=== PATIENT | female | born 1950 | race Caucasian/White ===

== ENCOUNTER → 2016-07-15 | Outpatient (CLI) | payer BC ==
--- NOTE | 2016-07-18 06:51 | MM ---
Reason for exam: screening (asymptomatic). Last mammogram was performed 1 year ago. History: Patient is postmenopausal and has history of other cancer at age 51. Took estrogen for 8 years. Physical Findings: A clinical breast exam by your physician is recommended on an annual basis and results should be correlated with mammographic findings. MG Screening Mammo w CAD Bilateral CC and MLO view(s) were taken. Prior study comparison: July 14, 2015, bilateral MG screening mammo w CAD. July 08, 2014, bilateral MG screening mammo w CAD. The breast tissue is heterogeneously dense. This may lower the sensitivity of mammography. There is chronic nodularity in the right breast. There is no discrete abnormality. ASSESSMENT: Negative, BI-RAD 1 RECOMMENDATION: Routine screening mammogram of both breasts in 1 year.
== END | disposition home or self-care (01) ==
LOC: RADMAMWWP 09:43
PROVIDERS: ATTEND Family Medicine
DX: Z12.31 Encounter for screening mammogram for malignant neoplasm of breast (principal)

== ENCOUNTER → 2017-07-25 | Outpatient (CLI) | payer BC ==
--- NOTE | 2017-07-26 09:34 | MM ---
Reason for exam: screening (asymptomatic). Last mammogram was performed 1 year ago. History: Patient is postmenopausal and has history of other cancer at age 51. Took estrogen for 8 years. Physical Findings: A clinical breast exam by your physician is recommended on an annual basis and results should be correlated with mammographic findings. MG Screening Mammo w CAD Bilateral CC and MLO view(s) were taken. Prior study comparison: July 15, 2016, bilateral MG screening mammo w CAD. July 14, 2015, bilateral MG screening mammo w CAD. The breast tissue is heterogeneously dense. This may lower the sensitivity of mammography. No significant changes when compared with prior studies. ASSESSMENT: Benign, BI-RAD 2 RECOMMENDATION: Routine screening mammogram of both breasts in 1 year.
== END | disposition home or self-care (01) ==
LOC: RADMAMWWP 11:08
PROVIDERS: ATTEND Family Medicine
DX: Z12.31 Encounter for screening mammogram for malignant neoplasm of breast (principal)
CPT/HCPCS: 77067

== ENCOUNTER → 2018-03-21 | Outpatient (CLI) | payer BC ==
--- NOTE | 2018-03-21 11:58 | XR ---
EXAMINATION TYPE: XR chest 2V DATE OF EXAM: 03/21/2018 COMPARISON: Prior chest x-ray 04/06/2017 HISTORY: Checkup, Z 87.891, Z00.00 TECHNIQUE: Frontal and lateral views of the chest are obtained. FINDINGS: There is no focal air space opacity, pleural effusion, or pneumothorax seen. The cardiac silhouette size is within normal limits. The osseous structures are intact. Patient may be rotated as on prior, there may be slight spinal curvature. IMPRESSION: No acute cardiopulmonary process.
== END ==
LOC: RADXRMAIN 11:17
PROVIDERS: ATTEND Family Medicine
DX: Z00.00 Encounter for general adult medical examination without abnormal findings (principal); Z87.891 Personal history of nicotine dependence
CPT/HCPCS: 71046

== ENCOUNTER → 2018-07-27 | Outpatient (CLI) | payer BC ==
--- NOTE | 2018-07-31 08:41 | MM ---
Reason for exam: screening (asymptomatic). Last mammogram was performed 1 year ago. History: Patient is postmenopausal and has history of other cancer at age 51. Took estrogen for 8 years. Physical Findings: A clinical breast exam by your physician is recommended on an annual basis and results should be correlated with mammographic findings. MG Screening Mammo w CAD Bilateral CC and MLO view(s) were taken. Prior study comparison: July 25, 2017, bilateral MG screening mammo w CAD. July 15, 2016, bilateral MG screening mammo w CAD. No significant changes when compared with prior studies. ASSESSMENT: Benign, BI-RAD 2 RECOMMENDATION: Routine screening mammogram of both breasts in 1 year.
== END | disposition home or self-care (01) ==
LOC: RADMAMWWP 08:14
PROVIDERS: ATTEND Family Medicine
DX: Z12.31 Encounter for screening mammogram for malignant neoplasm of breast (principal)
CPT/HCPCS: 77067

== ENCOUNTER → 2019-03-25 | Outpatient (CLI) | payer BC ==
--- NOTE | 2019-03-25 13:07 | XR ---
EXAMINATION TYPE: XR chest 2V DATE OF EXAM: 03/25/2019 COMPARISON: 03/21/2018 INDICATION: Z00.00 TECHNIQUE: Frontal and lateral views of the chest are obtained. FINDINGS: The heart size is normal. The pulmonary vasculature is normal. The lungs are clear. Minimal scoliosis within the thoracic spine. This can be positional. IMPRESSION: 1. No acute pulmonary process.
== END | disposition home or self-care (01) ==
LOC: RADXRMAIN 12:39
PROVIDERS: ATTEND Family Medicine
DX: Z00.00 Encounter for general adult medical examination without abnormal findings (principal)
CPT/HCPCS: 71046

== ENCOUNTER → 2019-07-30 | Outpatient (CLI) | payer BC ==
--- NOTE | 2019-08-01 10:09 | MM ---
Reason for exam: screening (asymptomatic). Last mammogram was performed 1 year ago. History: Patient is postmenopausal and has history of other cancer at age 51. Took estrogen for 8 years. Physical Findings: A clinical breast exam by your physician is recommended on an annual basis and results should be correlated with mammographic findings. MG Screening Mammo w CAD Bilateral CC and MLO view(s) were taken. Prior study comparison: July 27, 2018, bilateral MG screening mammo w CAD. July 25, 2017, bilateral MG screening mammo w CAD. There are scattered fibroglandular densities. No significant changes when compared with prior studies. ASSESSMENT: Negative, BI-RAD 1 RECOMMENDATION: Routine screening mammogram of both breasts in 1 year.
== END | disposition home or self-care (01) ==
LOC: RADMAMWWP 08:38
PROVIDERS: ATTEND Family Medicine
DX: Z12.31 Encounter for screening mammogram for malignant neoplasm of breast (principal)
CPT/HCPCS: 77067

== ENCOUNTER → 2020-09-24 | Outpatient (CLI) | payer BC ==
--- NOTE | 2020-09-28 11:34 | MM ---
Reason for exam: screening (asymptomatic). Last mammogram was performed 1 year and 2 months ago. History: Patient is postmenopausal and has history of other cancer at age 51. Took estrogen for 8 years. Physical Findings: A clinical breast exam by your physician is recommended on an annual basis and results should be correlated with mammographic findings. MG Screening Mammo w CAD Bilateral CC and MLO view(s) were taken. Prior study comparison: July 30, 2019, bilateral MG screening mammo w CAD. July 27, 2018, bilateral MG screening mammo w CAD. July 25, 2017, bilateral MG screening mammo w CAD. July 15, 2016, bilateral MG screening mammo w CAD. There are scattered fibroglandular densities. No significant changes when compared with prior studies. ASSESSMENT: Benign, BI-RAD 2 RECOMMENDATION: Routine screening mammogram of both breasts in 1 year.
== END | disposition home or self-care (01) ==
LOC: RADMAMWWP 10:16
PROVIDERS: ATTEND Family Medicine
DX: Z12.31 Encounter for screening mammogram for malignant neoplasm of breast (principal); Z78.0 Asymptomatic menopausal state
CPT/HCPCS: 77067

== ENCOUNTER 2021-05-21 07:10 | Day surgery (SDC) | payer BC ==
[2021-05-19 09:07] VITALS: BMI 20.9
[~2021-05-21 07:10] MED LIST: LACTATED RINGERS 1,000 ML IV SCH
[2021-05-21 07:51] VITALS: RESP 16; TEMP 97.7
[2021-05-21] MEDS ORDERED: PROPOFOL 10 MG/ML 20 ML VIAL IV ONE (08:00)
--- NOTE | 2021-05-21 08:15 | P.HPIHPCON ---
History of Present Illness H&P Date: 05/21/21 70-year-old female presents for screening colonoscopy. Her last colonoscopy was approximately 15 years ago. She denies any blood in her stool. Denies any family history of colon cancer. Consent for Procedure: I have explained the operation/procedure to the patient, including the risks, benefits, side effects, alternative therapies (including not receiving the proposed treatment or service), the likelihood of the patient achieving his/her goals, and potential recuperation problems for the procedure/sedation/analgesia, as well as any blood products, if indicated. I also explained to the patient the risks, benefits and side effects of the alternatives, as well as the risks related to not receiving the proposed procedure, care, treatment, or services. - Review of Systems All systems: negative Past Medical History Past Medical History: No Reported History History of Any Multi-Drug Resistant Organisms: None Reported Past Surgical History: Hysterectomy Additional Past Surgical History / Comment(s): COLONOSCOPY Past Anesthesia/Blood Transfusion Reactions: No Reported Reaction Smoking Status: Former smoker - Past Family History Mother Family Medical History: Cancer Additional Family Medical History / Comment(s): OVARIAN Sister(s) Family Medical History: Cancer Additional Family Medical History / Comment(s): LUNG-SMOKER Medications and Allergies Home Medications Medication Instructions Recorded Confirmed Type No Known Home Medications 05/19/21 05/21/21 History Allergies Allergy/AdvReac Type Severity Reaction Status Date / Time No Known Allergies Allergy Verified 05/21/21 07:46 Surgical - Exam Osteopathic Statement: *. No significant issues noted on an osteopathic structural exam other than those noted in the History and Physical/Consult. Vital Signs Temp Pulse Resp BP Pulse Ox 97.7 F 70 16 147/72 99 05/21/21 07:50 05/21/21 07:50 05/21/21 07:50 05/21/21 07:50 05/21/21 07:50 - General well nourished, no distress - Neck trachea midline - Respiratory normal respiratory effort - Abdomen Abdomen: soft, non tender Assessment and Plan Plan: Plan is for a colonoscopy. Further recommendations to be made after procedure. Risks, benefits and alternatives were provided to the patient and she did provide consent.
--- NOTE | 2021-05-21 08:17 | P.PCN ---
Date of Procedure: 05/21/21 Preoperative Diagnosis: Screening for colon cancer Postoperative Diagnosis: Diverticulosis Procedure(s) Performed: Colonoscopy Anesthesia: MAC Surgeon: Fadia Lama Pathology: none sent Condition: stable Disposition: same day Indications for Procedure: 70-year-old female presents for screening colonoscopy. She denies blood in her stool. Her last colonoscopy was 15 years ago. Risks, benefits and alternatives were provided to the patient and she did provide consent. Operative Findings: Diverticulosis Description of Procedure: The patient was brought into the endoscopy suite and placed in left lateral decubitus position. Adequate sedation was achieved using conscious sedation. A digital rectal exam was performed and internal hemorrhoids were palpated. An endoscope was then placed in the rectum and advanced to the cecum as identified by landmarks including the appendiceal orifice and the ileocecal valve. The prep was good. The colonoscope was slowly withdrawn, examining for any mucosal antibiotics. The cecum, ascending, transverse, descending and sigmoid colon were visualized adequately. There were no large neoplastic lesions noted throughout the colon. There were no obvious polyps noted throughout the colon. Moderate amount of diverticulosis was noted in the descending and sigmoid colon. Retroflexion was performed in the rectum and internal hemorrhoids were visible. Excess air was removed from the colonoscope withdrawn and the procedure terminated. The patient was then transferred to the recovery unit in stable condition. Repeat colonoscopy should be performed in 8 years.
[2021-05-21 08:32] VITALS: BP 128/72; PULSE 56
== END 2021-05-21 09:18 | disposition home or self-care (01) ==
LOC: ORWHC2ENDO 07:10
PROVIDERS: ATTEND Surgery
DX: Z12.11 Encounter for screening for malignant neoplasm of colon (principal); K57.30 Diverticulosis of large intestine without perforation or abscess without bleeding; K64.8 Other hemorrhoids; Z90.710 Acquired absence of both cervix and uterus; Z87.891 Personal history of nicotine dependence; Z80.41 Family history of malignant neoplasm of ovary
CPT/HCPCS: J2704; G0121; 45378

== ENCOUNTER → 2021-10-12 | Outpatient (CLI) | payer BC ==
--- NOTE | 2021-10-15 09:17 | MM ---
Reason for exam: screening (asymptomatic). Last mammogram was performed 1 year and 1 month ago. History: Patient is postmenopausal and has history of other cancer at age 51. Took estrogen for 8 years. Physical Findings: A clinical breast exam by your physician is recommended on an annual basis and results should be correlated with mammographic findings. MG Screening Mammo w CAD Bilateral CC and MLO view(s) were taken. Prior study comparison: September 24, 2020, bilateral MG screening mammo w CAD. July 30, 2019, bilateral MG screening mammo w CAD. The breast tissue is heterogeneously dense. This may lower the sensitivity of mammography. No significant changes when compared with prior studies. ASSESSMENT: Benign, BI-RAD 2 RECOMMENDATION: Routine screening mammogram of both breasts in 1 year.
== END | disposition home or self-care (01) ==
LOC: RADMAMWWP 11:53
PROVIDERS: ATTEND Family Medicine
DX: Z12.31 Encounter for screening mammogram for malignant neoplasm of breast (principal)
CPT/HCPCS: 77067

== ENCOUNTER 2022-06-19 19:18 | Emergency (ER) | payer BC ==
[2022-06-19 19:30] VITALS: RESP 16; TEMP 98.4
[2022-06-19] MEDS ORDERED: TOPICAL SKIN ADHESIVE 1 EACH AMP TOPICAL ONE (20:44)
[2022-06-19] MEDS ORDERED: DIPH,PERTUS(ACELL)TETVAC-LF 0.5 ML VIAL IM ONE (20:44)
[2022-06-19 21:48] VITALS: PULSE 67
[2022-06-19 21:50] VITALS: BP 171/91
--- NOTE | 2022-06-19 21:56 | ED ---
General Adult HPI - General Chief complaint: Wound/Laceration Stated complaint: Head Lac Time Seen by Provider: 06/19/22 20:10 Source: patient, RN notes reviewed Mode of arrival: ambulatory Limitations: no limitations - History of Present Illness Initial comments: 71-year-old female presents to the emergency department for evaluation of a facial laceration to the right side of her face near the inner corner of her eye extending to her eyebrow. States she was assembling an exercise bike when she pulled hard and the metal piece struck her face. Minimal bleeding. Developing contusion around the injury. Denies any headache, dizziness, loss of consciousness, blurry vision, vision change, or any other injuries. Last tetanus shot 10 years ago. - Related Data Home Medications Medication Instructions Recorded Confirmed No Known Home Medications 05/19/21 06/19/22 Allergies Allergy/AdvReac Type Severity Reaction Status Date / Time No Known Allergies Allergy Verified 06/19/22 20:45 Review of Systems ROS Statement: Those systems with pertinent positive or pertinent negative responses have been documented in the HPI. ROS Other: All systems not noted in ROS Statement are negative. Past Medical History Past Medical History: No Reported History History of Any Multi-Drug Resistant Organisms: None Reported Past Surgical History: Hysterectomy Additional Past Surgical History / Comment(s): COLONOSCOPY Past Anesthesia/Blood Transfusion Reactions: No Reported Reaction Past Psychological History: No Psychological Hx Reported Smoking Status: Former smoker Past Alcohol Use History: Occasional Past Drug Use History: None Reported - Past Family History Mother Family Medical History: Cancer Additional Family Medical History / Comment(s): OVARIAN Sister(s) Family Medical History: Cancer Additional Family Medical History / Comment(s): LUNG-SMOKER General Exam Limitations: no limitations General appearance: alert, in no apparent distress Head exam: Present: atraumatic, normocephalic, normal inspection Eye exam: Present: normal appearance, PERRL, EOMI, periorbital tenderness (minimal tenderness upon palpation of the right periorbital area along nasal border extending to eyebrow. ). Absent: scleral icterus, conjunctival injection, periorbital swelling Pupils: Present: other (1cm superficial laceration right periorbital area) Respiratory exam: Present: normal lung sounds bilaterally. Absent: respiratory distress, wheezes, rales, rhonchi, stridor Cardiovascular Exam: Present: regular rate, normal rhythm, normal heart sounds. Absent: systolic murmur, diastolic murmur, rubs, gallop, clicks Neurological exam: Present: alert, oriented X3, CN II-XII intact, normal gait Psychiatric exam: Present: normal affect, normal mood Course Vital Signs 06/19/22 06/19/22 06/19/22 19:27 21:47 21:49 Temperature 98.4 F Pulse Rate 82 67 Respiratory 16 16 Rate Blood Pressure 154/84 186/83 171/91 O2 Sat by Pulse 98 96 Oximetry Procedures - Laceration Laceration #1 Consent Obtained: verbal consent Indication: laceration Site: face Size (cm): 1 Description: linear Depth: simple, single layer Pre-repair: irrigated extensively Patient Tolerated Procedure: well, no complications Additional Comments: Wound cleansed, irrigated, and thoroughly dried. Exofion skin adhesive applied to wound with good closure. Wound care reviewed with patient. She verbalizes understanding. Medical Decision Making - Medical Decision Making 71-year-old female presents to the emergency department for evaluation of superficial laceration to the face. Upon exam, patient is well-appearing and in no acute distress. She does have a superficial linear laceration above the inner corner of her right eye along the nasal border. Tetanus shot was administered. Wound was cleansed and approximated with Exofin. Instructed on wound care. She is discharged home to follow up with her PCP for a recheck in 48-72 hours. Return parameters discussed in detail. Patient verbalizes understanding and agrees with this plan. Attending: Jazmyn Was pt. sent in by a medical professional or institution? @ -No Did you speak to anyone other than the patient for history? @ -No Did you review nursing and triage notes? @ -Yes, agree Were old charts reviewed? @ -No Differential Diagnosis? @ -Facial abrasion, contusion, laceration, this is not meant to be an exhaustive list EKG interpreted by me (3pts min.)? @ -Not applicable X-rays interpreted by me (1pt min.)? @ -Not applicable CT interpreted by me (1pt min.)? @ -Not applicable U/S interpreted by me (1pt. min.)? @ -Not applicable What testing was considered but not performed? (CT, X-rays, U/S, labs)? Why? @ -None What meds were considered but not given? Why? @ -None Did you discuss the management of the patient with other professionals? @ -None Did you reconcile home meds? @ -No Was smoking cessation discussed for >3mins.? @ -No Was critical care preformed (if so, how long)? @ -No Were there social determinants of health that impacted care today? How? (Homelessness, low income, unemployed, alcoholism, drug addiction, transportation, low edu. Level, literacy, decrease access to med. care, m[facility], rehab)? @ -No Was there de-escalation of care discussed even if they declined? (Discuss DNR or withdrawal of care, Hospice)? @ -No What co-morbidities impacted this encounter? (DM, HTN, Smoking, COPD, CAD, Cancer, CVA, Hep., AIDS, mental health diagnosis, sleep apnea, morbid obesity)? @ -No Was patient admitted / discharged? @ -Discharged Undiagnosed new problem with uncertain prognosis? @ -None Drug Therapy requiring intensive monitoring for toxicity (Heparin, Nitro, Insulin, Cardizem)? @ -None Were any procedures done? @ -Wound cleansed and approximated Exofin Diagnosis/symptom? @ -Superficial laceration, face Acute, or Chronic, or Acute on Chronic? @ -Acute Uncomplicated (without systemic symptoms) or Complicated (systemic symptoms)? @ -Uncomplicated Side effects of treatment? @ -None Exacerbation, Progression, or Severe Exacerbation] @ -No Poses a threat to life or bodily function? @ -No Disposition Clinical Impression: Superficial laceration of face Disposition: HOME SELF-CARE Condition: Stable Instructions (If sedation given, give patient instructions): Skin Adhesive Care (ED) Additional Instructions: Avoid picking or peeling skin adhesive. Allow adhesive to flake off on its own. Keep wound clean and dry for first 48 hours. You were given a tetanus shot today. Follow-up with your PCP for a wound recheck in 72 hours. Return to the emergency department with any new, worsening, or concerning sy mptoms. Is patient prescribed a controlled substance at d/c from ED?: No Referrals: Matthew De La Vega DO [Primary Care Provider] - 1-2 days Time of Disposition: 21:56
== END 2022-06-19 22:03 | disposition home or self-care (01) ==
LOC: EC 19:18
DX: S01.81XA Laceration without foreign body of other part of head, initial encounter (principal); Z23 Encounter for immunization; Z87.891 Personal history of nicotine dependence; W22.8XXA Striking against or struck by other objects, initial encounter
CPT/HCPCS: 12011; 90471; 90715; 99282

== ENCOUNTER → 2023-10-17 | Outpatient (CLI) | payer BC ==
--- NOTE | 2023-10-17 16:13 | BD ---
EXAMINATION TYPE: Axial Bone Density DATE OF EXAM: 10/17/2023 CLINICAL HISTORY: 73 years old Female. ICD-10 CODE: M81.0 OSTEOPOROSIS Height: 62.25" Weight: 126lbs FRAX RISK QUESTIONS: Alcohol (3 or more units per day): No Family History (Parent hip fracture): No Glucocorticoids (More than 3mos): No (Ex: prednisone, prednisolone, methylprednisolone, dexamethasone, and hydrocortisone). History of Fracture in Adulthood: No Secondary Osteoporosis: 1. Type 1 Diabetes: No 2. Hyperthyroidism: No 3. Menopause before 45: Yes 4. Malnutrition: No 5. Chronic liver disease: No Rheumatoid Arthritis: No Current Tobacco Use: No RISK FACTORS HISTORY OF: Hip Fracture (Right/Left): No Spine Fracture: No History of Wrist Fracture: No Surgery to Spine/Hip(right/left)/Wrist (right/left): No MEDICATIONS: Thyroid Medications: No Osteoporosis Medications: No EXAM MEASUREMENTS: Bone mineral densitometry was performed using the [employer] System. Bone mineral density as measured about the Lumbar spine is: ----- L1-L4(G/cm2): 1.198 T Score Values are as follows: ----- L1: -0.5 ----- L2: 0.1 ----- L3: -0.4 ----- L4: 1.0 ----- L1-L4: 0.1 Z Score Values are as follows: ----- L1: 1.5 ----- L2: 2.1 ----- L3: 1.6 ----- L4: 3.0 ----- L1-L4: 2.1 Baseline @MPH Bone mineral density about the R hip (g/cm2): 0.864 Bone mineral density about the L hip (g/cm2): 0.961 T Score values are as follows: -----R Neck: -1.5 -----L Neck: -0.7 -----R Total: -1.1 -----L Total: -0.4 Z Score values are as follows: -----R Neck: 0.5 -----L Neck: 1.3 -----R Total: 0.6 -----L Total: 1.4 Baseline @MPH FRAX%s: The graph provided illustrates a 10.0% chance for a major osteoporotic fx and a 1.7% chance f or the hips probability for fx in 10 years time. IMPRESSION: Osteopenia (T Score between -2.5 and -1). There is slightly increased risk of fracture and the patient may be considered for treatment. Re-Screen 2-5 years. NOTE: T-SCORE=SD OF THE YOUNG ADULT MEAN.
--- NOTE | 2023-10-18 09:31 | MM ---
Reason for Exam: Screening (asymptomatic). Last screening mammogram was performed 12 month(s) ago. Patient History: Menarche at age 13. First Full-Term at age 19. Hysterectomy at age 42. Postmenopausal. Other cancer, age 51. Estrogen for 8 years until age 54. Risk Values: Maria Ines 5 year model risk: 1.3%. NCI Lifetime model risk: 3.3%. Prior Study Comparison: 09/24/2020 Bilateral Screening Mammogram, [facility]. 10/12/2021 Bilateral Screening Mammogram, [facility]. 10/13/2022 Bilateral MG screening mammo w CAD, [facility]. Tissue Density: The breasts are heterogeneously dense, which may obscure small masses. Findings: Analyzed By CAD. There is no suspicious group of microcalcifications or new suspicious mass in either breast. Benign-appearing calcifications. Overall Assessment: Benign, BI-RAD 2 Management: Screening Mammogram of both breasts in 1 year. . Patient should continue monthly self-breast exams. A clinical breast exam by your physician is recommended on an annual basis. This exam should not preclude additional follow-up of suspicious palpable abnormalities. Note on Maria Ines scores and lifetime risk: 1. A Maria Ines score greater than 3% is considered moderate risk. If this is the case, consider specialist referral to assess eligibility for a risk reducing agent. 2. If overall lifetime risk for the development of breast cancer is 20% or higher, the patient may qualify for future screening with alternating mammogram and breast MRI. Electronically signed and approved by: Ilia Stacy M.D. Radiologis
== END | disposition home or self-care (01) ==
LOC: RADMAMWWP 10:13
PROVIDERS: ATTEND Family Medicine
DX: Z12.31 Encounter for screening mammogram for malignant neoplasm of breast (principal); M81.0 Age-related osteoporosis without current pathological fracture; M85.88 Other specified disorders of bone density and structure, other site; Z78.0 Asymptomatic menopausal state
CPT/HCPCS: 77063; 77067; 77080

== ENCOUNTER → 2024-10-25 | Outpatient (CLI) | payer MEDICARE ==
--- NOTE | 2024-10-25 09:38 | MM ---
Reason for Exam: Screening (asymptomatic). Last screening mammogram was performed 12 month(s) ago. Patient History: Menarche at age 13. First Full-Term at age 19. Hysterectomy at age 42. Postmenopausal. Other cancer, age 51. Estrogen for 8 years until age 54. Risk Values: Maria Ines 5 year model risk: 1.3%. NCI Lifetime model risk: 3.1%. Prior Study Comparison: 10/12/2021 Bilateral Screening Mammogram, [facility]. 10/13/2022 Bilateral MG screening mammo w CAD, [facility]. 10/17/2023 Bilateral MG 3D screening mammo w/cad, [facility]. Tissue Density: There are scattered areas of fibroglandular density. Findings: Analyzed By CAD. There is no suspicious group of microcalcifications or new suspicious mass in either breast. Overall Assessment: Negative, BI-RAD 1 Management: Screening Mammogram of both breasts in 1 year. . Patient should continue monthly self-breast exams. A clinical breast exam by your physician is recommended on an annual basis. This exam should not preclude additional follow-up of suspicious palpable abnormalities. Note on Maria Ines scores and lifetime risk: 1. A Maria Ines score greater than 3% is considered moderate risk. If this is the case, consider specialist referral to assess eligibility for a risk reducing agent. 2. If overall lifetime risk for the development of breast cancer is 20% or higher, the patient may qualify for future screening with alternating mammogram and breast MRI. [facility], , 10/25/2024 9:35 AM. Electronically signed and approved by: Everardo Gracia M.D.
== END | disposition home or self-care (01) ==
LOC: RADMAMWWP 09:05
PROVIDERS: ATTEND Family Medicine
DX: Z12.31 Encounter for screening mammogram for malignant neoplasm of breast (principal); R92.323 Mammographic fibroglandular density, bilateral breasts; Z78.0 Asymptomatic menopausal state
CPT/HCPCS: 77063; 77067